=== PATIENT | male | born 1970 | race Caucasian/White ===

== ENCOUNTER 2016-09-17 10:46 | Inpatient (IN) | payer BC, OTHER ==
[~2016-09-17] VITALS: Ht 177.8 cm; Wt 95.3 kg
[2016-09-17] MEDS ORDERED: LOSA100T15 PO (18:42)
[2016-09-17] MEDS ORDERED: TRAZ-147 PO (18:42)
[2016-09-17] MEDS ORDERED: GABA600T2 PO (18:42)
[2016-09-17] MEDS ORDERED: ENTA200T PO (18:42)
[2016-09-17 19:05] VITALS: BP 175/91
--- NOTE | 2016-09-17 19:15 | NUR ---
Assumed Care: Pre-assessment completed by day shift nurse. Vitals endorsed: 175/91, 85, 97.2, 16, 98%. 0/10 pain. NKA. No Hx of Sz. Skin intact.
--- NOTE | 2016-09-17 19:45 | NUR ---
ADMISSION NOTE: NEW ADMISSION IS A 46 YO MALE ON THE [facility] FLOOR AT 18:43 ON 09/17/16; PRE-ADMISSION ASSESSMENT COMPLETED BY DAY SHIFT NURSE. UDS RESULTED POSITIVE FOR OPIATES. VS: 175/91, 85, 97.2, 16, 98% SPO2 ON RA. COWS IS 3: DIAPHORESIS, ANXIETY . HEIGHT IS 5'10 AND WEIGHT BY STANDING SCALE IS 210 LBS. PT REPORTS NKDA/NKFA. PT REPORTS PCP IS DR HOOD IN [place]. PT ADMITTED UNDER THE CARE OF DR GODDARD. PT REPORTS THE FOLLOWING SUBSTANCE USE: OXYCONTIN: PT REPORTS TAKING 200MG DAILY FOR THREE MONTHS CURRENTLY, 5 YEARS TOTAL. LAST USE WAS 30MG AT 16:00 ON 09/17/2016. XANAX: PT REPORTS TAKING 0.5MG ON AN INTERMITTENT, NON-DAILY BASIS. LAST USE WAS 0.5MG ON 09/11/16. PT REPORTS A HX OF ETOH DEPENDENCE, IN REMISSION SINCE 04/2016 PT REPORTS THAT HE IS A NON-SMOKER. WRITTEN SMOKING CESSATION EDUCATION PROVIDED. PT VERBALIZES UNDERSTANDING. PT REPORTS TREATMENT HX: INSPIRE MALIBU IN 04/2016 FOR 9 DAYS. PT REPORTS PMHX OF ANXIETY, DEPRESSION, HTN. SURGICAL HX: LEFT MENISCUS MICROFRACTURE, BILATERAL WRISTS/NERVE FOR HAND DIAPHORESIS. PT DENIES A HX OF WITHDRAWAL INDUCED SZ. HOME MEDICATIONS RECONCILED. PT IS AMBULATORY WITH STEADY GAIT. PT IS A&OX4. SKIN ASSESSMENT: INTACT. PT DENIES CURRENT OR HX OF SI/HI. LUNGS ARE CTA THROUGHOUT, RESPIRATIONS ARE EVEN AND UNLABORED. PT DENIES COUGH. HEART SOUNDS REGULAR. BOWEL SOUNDS ACTIVE IN ALL QUADRANTS; PT REPORTS LAST BM ON 09/16/16. ABDOMEN IS SOFT, NON-DISTENDED, NON-TENDER.
[2016-09-17 20:00] VITALS: BP 156/106
[2016-09-17 20:14] LABS: *AMPHETAMINE, URINE NEGATIVE (NEGATIVE); *BARBITURATE, URINE NEGATIVE (NEGATIVE); *CANNABINOID, URINE NEGATIVE (NEGATIVE); *COCCAINE, URINE NEGATIVE (NEGATIVE); *OPIATE, URINE POSITIVE (NEGATIVE); *PHENCYCLIDINE SCREEN,URINE NEGATIVE (NEGATIVE)
[2016-09-17] MEDS ORDERED: hydrALAZINE HCL 25 MG TABLET PO PRN (20:15)
[2016-09-17] MEDS ORDERED: ONDANSETRON ODT 4 MG TAB.RAPDIS SL PRN (20:15)
[2016-09-17] MEDS ORDERED: diphenhydrAMINE 50 MG CAPSULE PO PRN (20:15)
[2016-09-17] MEDS ORDERED: MAG HYDROX/AL HYDROX/SIMETH 30 ML LIQUID UDC PO PRN (20:15)
[2016-09-17] MEDS ORDERED: MIRALAX 17 GM POWD.PACK PO PRN (20:15)
[2016-09-17] MEDS ORDERED: MAGNESIUM HYDROXIDE 30 ML LIQUID UDC PO PRN (20:15)
[2016-09-17] MEDS ORDERED: LOPERAMIDE HCL 2 MG CAPSULE PO PRN ×2 (20:15)
[2016-09-17] MEDS ORDERED: LORAZEPAM 1 MG TABLET PO PRN ×2 (20:15)
[2016-09-17] MEDS ORDERED: DICYCLOMINE HCL 20 MG TABLET PO PRN (20:15)
[2016-09-17] MEDS ORDERED: BUPRENORPHINE HCL 2 MG TAB.SUBL SL PRN (20:15)
[2016-09-17] MEDS ORDERED: LORAZEPAM 2 MG/1 ML VIAL IM PRN (20:15)
[2016-09-17] MEDS ORDERED: IBUPROFEN 600 MG TABLET PO PRN (20:15)
[2016-09-17] MEDS ORDERED: ONDANSETRON 4 MG/2 ML VIAL IM PRN (20:15)
[2016-09-17] MEDS ORDERED: METHOCARBAMOL 750 MG TABLET PO PRN (20:15)
[2016-09-17] MEDS ORDERED: HYDROXYZINE PAMOATE 25 MG CAPSULE PO PRN (20:15)
[2016-09-17] MEDS ORDERED: ACETAMINOPHEN 325 MG TABLET PO PRN (20:15)
[2016-09-17] MEDS ORDERED: CLONIDINE HCL 0.1 MG TABLET PO SCH (21:00)
[2016-09-17] MEDS: GABAPENTIN 300 MG CAPSULE PO SCH (21:20)
[2016-09-17] MEDS: TRAZODONE 100 MG TABLET PO PRN (21:20)
--- NOTE | 2016-09-17 21:20 | NUR ---
PRN Trazodone: Patient complains of inability to sleep. Administered PRN Trazodone as ordered. Will continue to monitor.
[2016-09-17] MEDS ORDERED: LOSARTAN POTASSIUM 50 MG TABLET PO ONE (21:30)
[2016-09-17] MEDS ORDERED: LOSARTAN POTASSIUM 50 MG TABLET PO SCH (21:30)
[2016-09-17] MEDS ORDERED: LOSARTAN POTASSIUM 50 MG TABLET ONE (21:38)
--- NOTE | 2016-09-17 22:20 | NUR ---
PRN Reassessment: Patient is in bed with eyes closed. Respirations are even and unlabored. No s/s of acute distress noted. PRN Trazodone effective. Will continue to monitor.
[2016-09-18] VITALS: BP 127/70
--- NOTE | 2016-09-18 | NUR ---
COWS DEFERRED: COWS IS DEFERRED FOR SLEEP. V/S STABLE. ALL SAFETY PRECAUTIONS ARE IN PLACE. WILL CONTINUE TO MONITOR. Addendum: 09/18/16 at 0121 by BART SALGADO RN Amended: Links added.
[2016-09-18 04:00] VITALS: BP 131/87
--- NOTE | 2016-09-18 04:00 | NUR ---
COWS Deferred: COWS is deferred for sleep. V/S stable. All safety precautions are in place. Will continue to monitor. Addendum: 09/18/16 at 0435 by BART SALGADO RN Amended: Links added.
--- NOTE | 2016-09-18 07:02 | NUR ---
Start of Shift Endorsement received from nightshift nurse. PT is a 46 y/o male admitted for oxycontin and xanax dependence. Pt has been placed on a 5 day Subutex taper set to begin on 09/18/16. Pt is tolerating the detox process well AEB COWS 2 at 0800. Pt reports sleeping 8 hours. Pt received PRN Trazodone to help with sleep. VS WNL. Full Code. PT is alert and oriented x4. Pt is in STABLE condition at this time. Remains compliant with medication and diet regimen. All needs have been met, All safety measures in place per hospital policy. Bed in lowest position, side rails up x2, call-light within reach. Will continue to monitor
--- NOTE | 2016-09-18 07:32 | NUR ---
End of Shift Note: Pt is a 46 yo male admitted to [facility] last night for medically-supervised withdrawal from opiates. Pt reports a PMHx of HTN, depression, and anxiety. Pt reports NKA. Pt is a full code. Pt is on a regular diet. Pt reported using 200mg OxyContin daily for three months. Pt is to start a 5-day Subutex taper today. Pt was intoxicated upon admission, and no PRN medications were necessary for withdrawal. Last COWS=2 at 20:00. V/S stable throughout shift, with elevated BP. Total fluid intake this shift: 500 ml; output: urine x 1 and BM x 0. PRN Trazodone was given for inability to sleep, which was effective and pt slept 8 hours this shift. Pt is currently in bed, all needs have been attended and met. Pt endorsed to day shift nurse.
[2016-09-18 08:00] VITALS: BP 146/96
[2016-09-18] MEDS: GABAPENTIN 300 MG CAPSULE PO SCH ×3 (08:37→22:11)
[2016-09-18] MEDS: DOCUSATE SODIUM 250 MG CAPSULE PO SCH (08:37)
[2016-09-18] MEDS: MULTIVITAMINS,THERAPEUTIC TABLET PO SCH (08:37)
[2016-09-18] MEDS ORDERED: 5 DAY TAPER BUPRENORPHINE -SERENITY PROTOCOL SL PRN (09:00)
[2016-09-18] MEDS ORDERED: BUPRENORPHINE HCL 2 MG TAB.SUBL SL SCH (09:00)
[2016-09-18] MEDS ORDERED: TUBERCULIN,PURIF.PROT.DERIV. 5 TU/0.1 ML TEST ID ONE (09:00)
[2016-09-18] MEDS ORDERED: Medication Not On Formulary EA (Gabapentin 1 TAB) PO SCH (09:00)
[2016-09-18 12:00] VITALS: BP 161/105
[2016-09-18] MEDS ORDERED: BUPRENORPHINE HCL 2 MG TAB.SUBL SL PRN (12:15)
[2016-09-18 16:00] VITALS: BP 161/108
--- NOTE | 2016-09-18 18:41 | NUR ---
End of Shift Endorsement given to nightshift nurse. PT is a 46 y/o male admitted for oxycontin and xanax dependence. Pt has been placed on a 5 day Subutex taper. Subutex taper was not initiated due to pt having a COWS score of 4. Pt will be farther evaluated on 09/19/16 and the taper may be initiated at 0900. Pt is tolerating the detox process well AEB COWS 4 at 1600. Pt did not participate in groups, pt did participate in activities. Encouraged pt to participate in groups and activities. Educated pt on medications S/E and diet regimen. Administered PRN Hydralazine for BP over 160/100 per parameters. Intake: 1300, Void x2, BM x1 . VS WNL with an elevated BP over 160/100. Full Code. PT is alert and oriented x4. Pt is in STABLE condition at this time. Remains compliant with medication and diet regimen. All needs have been met, All safety measures in place per hospital policy. Bed in lowest position, side rails up x2, call-light within reach. Will continue to monitor
--- NOTE | 2016-09-18 19:45 | NUR ---
Start of Shift Note: Report received from day shift nurse. Pt is a 46 yo male admitted on 09/17/16 for medically-supervised withdrawal from opiates. Pt reports taking 200mg OxyContin daily for three months. Pt has ordered Subutex taper, not yet initiated; PRN Subutex and support medications available. Pt received with last COWS=4, and PRN hydralazine was given during day shift. Pt reports NKDA/NKFA, is on a regular diet, and is a full code. PMHx: HTN, ETOH dependence in remission, depression, and anxiety. Pt received in room and reports restlessness, stomach cramps, and anxiety. Bed is in low position and locked, side rails up x2, call light is within reach. Will continue to monitor.
[2016-09-18 20:00] VITALS: BP 147/92
--- NOTE | 2016-09-18 20:44 | NUR ---
PRN Maalox: Patient complains of heartburn. Administered PRN Maalox as ordered. Will continue to monitor.
[2016-09-18] MEDS ORDERED: LOSARTAN POTASSIUM 50 MG TABLET PO SCH (21:00)
[2016-09-18] MEDS: CLONIDINE HCL 0.1 MG TABLET PO PRN (22:11)
[2016-09-18] MEDS: TRAZODONE 100 MG TABLET PO PRN (22:11)
--- NOTE | 2016-09-18 22:11 | NUR ---
PRN Clonidine/PRN Trazodone/Meds Late: Patient complains of anxiety not relieved by non-pharmacological methods. Administered PRN Clonidine as ordered. Patient complains of inability to sleep. Administered PRN Trazodone as ordered. 21:00 scheduled medications administered late as per patient request; patient states that he wants to take medications later as they make him drowsy and will help him sleep. Addendum: 09/19/16 at 0203 by BART SALGADO RN PRN Reassessment: Patient reports that PRN Maalox has relieved his heartburn at 21:15.
--- NOTE | 2016-09-18 23:15 | NUR ---
PRN Reassessment: Patient is in bed with eyes closed. Respirations are even and unlabored. No s/s of acute distress noted. PRN Clonidine and PRN Trazodone effective. Will continue to monitor.
[2016-09-19] VITALS: BP 152/86
--- NOTE | 2016-09-19 | NUR ---
COWS Deferred: COWS is deferred for sleep. V/S stable. All safety precautions are in place. Will continue to monitor. Addendum: 09/19/16 at 0104 by BART SALGADO RN Amended: Links added.
[2016-09-19 04:00] VITALS: BP 135/86
--- NOTE | 2016-09-19 04:00 | NUR ---
COWS Deferred: COWS is deferred for sleep. V/S stable. All safety precautions are in place. Will continue to monitor. Addendum: 09/19/16 at 0548 by BART SALGADO RN Amended: Links added.
[2016-09-19] MEDS: CLONIDINE HCL 0.1 MG TABLET PO PRN (06:02)
--- NOTE | 2016-09-19 06:02 | NUR ---
PRN Clonidine: Patient complains of anxiety. Administered PRN Clonidine as ordered. Will continue to monitor.
--- NOTE | 2016-09-19 06:48 | NUR ---
End of Shift Note: Pt is a 46 yo male admitted to [facility] on 09/17/16 for medically-supervised withdrawal from opiates. Pt reported a PMHx of HTN, ETOH dependence in remission, depression, and anxiety. Pt reports NKDA/NKFA. Pt is on a regular diet. Pt is a full code. Pt reported taking 200mg OxyContin daily for three months. Ordered Subutex taper has not been initiated d/t low COWS scores; PRN Subutex and support medications available. PRN Clonidine was given x2 for anxiety, and PRN Maalox was given for heartburn. Last COWS=7 at 20:00. V/S stable throughout shift. Total fluid intake this shift: 2050 ml; output: urine x 6 and BM x 0. PRN Trazodone was given for inability to sleep, which was not effective as pt slept 4 hours this shift. Pt is currently in bed, all needs have been attended and met. Pt endorsed to day shift nurse.
--- NOTE | 2016-09-19 07:05 | NUR ---
Start of Shift Endorsement received from nightshift nurse. PT is a 46 y/o male admitted for oxycontin and xanax dependence. Pt has been placed on a 5 day Subutex taper set to begin on 09/19/16. Pt is tolerating the detox process well AEB COWS 4 at 0400. Pt reports sleeping 6 hours. Pt received PRN Trazodone to help with sleep, pt also received PRN Clonidine and Maalox. VS WNL. Full Code. PT is alert and oriented x4. Pt reports being ready to be discharged. Pt is in STABLE condition at this time. Remains compliant with medication and diet regimen. All needs have been met, All safety measures in place per hospital policy. Bed in lowest position, side rails up x2, call-light within reach. Will continue to monitor
[2016-09-19 08:00] VITALS: BP 129/85
[2016-09-19] MEDS: DOCUSATE SODIUM 250 MG CAPSULE PO SCH (08:47)
[2016-09-19] MEDS: MULTIVITAMINS,THERAPEUTIC TABLET PO SCH (08:47)
[2016-09-19] MEDS: GABAPENTIN 300 MG CAPSULE PO SCH (08:47)
[2016-09-19] MEDS ORDERED: BUPRENORPHINE HCL 2 MG TAB.SUBL SL SCH (09:00)
[2016-09-19 12:00] VITALS: BP 138/78
[2016-09-19 13:35] LABS: *AMPHETAMINE, URINE NEGATIVE (NEGATIVE); *BARBITURATE, URINE NEGATIVE (NEGATIVE); *CANNABINOID, URINE NEGATIVE (NEGATIVE); *COCCAINE, URINE NEGATIVE (NEGATIVE); *OPIATE, URINE NEGATIVE (NEGATIVE); *PHENCYCLIDINE SCREEN,URINE NEGATIVE (NEGATIVE)
--- NOTE | 2016-09-19 13:50 | NUR ---
Discharge note PT has been discharged from [facility] to home. PT is in Stable condition, VS WNL. Denies suicidal and homicidal ideations at this time. . All documentation has been completed, paperwork signed and dated. Pt left with all of his belongings, medications and prescriptions. Pt has been discharged from [facility] on 09/19/16 at 1350. has been Notified.
[2016-09-20] MEDS ORDERED: BUPRENORPHINE HCL 2 MG TAB.SUBL SL SCH ×2 (09:00→15:00)
[2016-09-21] MEDS ORDERED: BUPRENORPHINE HCL 2 MG TAB.SUBL SL SCH (09:00)
[2016-09-22] MEDS ORDERED: BUPRENORPHINE HCL 2 MG TAB.SUBL SL SCH (09:00)
== END 2016-09-19 13:50 | disposition home or self-care (01) | DRG 895 ==
LOC: SRC 18:07
PROVIDERS: ADMIT Internal Medicine; ATTEND Internal Medicine
PROC: HZ2ZZZZ Detoxification Services for Substance Abuse Treatment (ICD-10-PCS; principal; 2016-09-17)
PROC: HZ51ZZZ Individual Psychotherapy for Substance Abuse Treatment, Behavioral (ICD-10-PCS; 2016-09-19)
DX: F11.23 Opioid dependence with withdrawal (principal); I10 Essential (primary) hypertension; Z83.3 Family history of diabetes mellitus; M17.12 Unilateral primary osteoarthritis, left knee; Z82.49 Family history of ischemic heart disease and other diseases of the circulatory system; F41.9 Anxiety disorder, unspecified
CPT/HCPCS: 71010; 80307; 80361; 86580